=== PATIENT | male | born 1975 | race Caucasian/White ===

== ENCOUNTER → 2017-10-10 16:10 | Outpatient (CLI) | payer MEDICAID ==
[2017-10-14 06:14] LABS: GROWTH HORMONE <0.1 ng/mL (0.0-10.0); IGF BINDING PROTEIN - 3 3984 ug/L (2571-5982); IGF-I (SOMATOMEDIN-C) 236 ng/mL (83-233)
== END | disposition home or self-care (01) ==
LOC: D.LAB 16:10
PROVIDERS: Family Medicine
DX: D35.2 Benign neoplasm of pituitary gland (principal)

== ENCOUNTER 2018-10-09 15:02 | Emergency (ER) | payer MEDICAID ==
[~2018-10-09] VITALS: Ht 182.9 cm; Wt 90.9 kg
[2018-10-09 15:05] VITALS: Ht 182.9 cm; Wt 90.9 kg
[2018-10-09] MEDS ORDERED: COZAAR100 MG PO (15:08)
[2018-10-09] MEDS ORDERED: COREG6.25 MG PO (15:09)
[2018-10-09] MEDS ORDERED: BUTALB-APAP-CA1 EACH PO (15:10)
[2018-10-09] MEDS ORDERED: PARLODEL5 MG PO (15:10)
[2018-10-09 15:36] LABS: APPEARANCE CLEAR (CLEAR); BILIRUBIN NEGATIVE (NEGATIVE); COLOR STRAW (YELLOW); GLUCOSE NEGATIVE (NEGATIVE); KETONE NEGATIVE (NEGATIVE); NITRITE NEGATIVE (NEGATIVE); PROTEIN TRACE mg/dL (NEGATIVE); SPECIFIC GRAVITY 1.005 (1.005-1.020); UROBILINOGEN NORMAL (NORMAL)
[2018-10-09 15:45] LABS: UDS - AMPHET NEGATIVE QUAL (NEGATIVE); UDS - BARB POSITIVE QUAL (NEGATIVE); UDS - BENZO NEGATIVE QUAL (NEGATIVE); UDS - COCAINE NEGATIVE QUAL (NEGATIVE); UDS - OPIATE NEGATIVE QUAL (NEGATIVE); UDS - PCP NEGATIVE QUAL (NEGATIVE); UDS - THC NEGATIVE QUAL (NEGATIVE)
[2018-10-09 16:03] LABS: BASOPHILS 0.3 % (0-2); EOSINOPHILS 0.4 % (0-7); HEMATOCRIT 50.6 % (42.0-54.0); HEMOGLOBIN 17.9 g/dL (13.5-17.5); IMMATURE GRANULOCYTES 0.4 % (0-5); LYMPHOCYTES 33.7 % (15-50); MCH 31.7 pg (26.0-34.0); MCHC 35.4 g/dL (31.0-37.0); MCV 89.7 fL (80.0-100.0); MEAN PLATELET VOLUME 9.9 fL (7.4-10.4); MONOCYTES 9.4 % (2-11); NEUTROPHILS 55.8 % (40-80); PLATELET COUNT 235 10x3/uL (130-400); RBC 5.64 10x6/uL (4.20-6.10); RDW 12.9 % (11.5-14.5); WBC 7.4 10x3/uL (4.8-10.8)
[2018-10-09 16:09] LABS: ALBUMIN 4.2 g/dL (3.4-5.0); BILIRUBIN - TOTAL 0.39 mg/dL (0.2-1.3); CALCIUM 9.1 mg/dL (8.5-10.1); CARBON DIOXIDE 26.7 mmol/L (21.0-32.0); CREATININE - SERUM 1.3 mg/dL (0.6-1.3); POTASSIUM - SERUM 3.7 mmol/L (3.5-5.1); PROTEIN - SERUM 8.1 g/dL (6.4-8.2)
[2018-10-09 16:12] LABS: MAGNESIUM - SERUM 2.2 mg/dL (1.8-2.4)
--- NOTE | 2018-10-09 19:53 | NUR ---
DR. PRIETO NOTIFIED AND REVIEWED PT'S BEHAVIOR AND ASSESSMENT RESULTS. PT IS A LOW RISK PER DR. PRIETO. DR. PRIETO STATED TO GIVE RESOURCES TO PT AT TIME OF DISCHARGE. NO FURTHER ORDERS AT THIS TIME. RESOURCES REVIEWED WITH PT AND HE VERBALIZED UNDERSTANDING. ALSO DISCUSSED LOCAL AA MEETING LOCATIONS.
[2018-10-09 20:20] VITALS: BP 130/82
== END 2018-10-09 20:20 | disposition home or self-care (01) ==
LOC: D.ER 15:02
PROVIDERS: Family Medicine
DX: S09.93XA Unspecified injury of face, initial encounter (principal); W18.30XA Fall on same level, unspecified, initial encounter; Y93.89 Activity, other specified; Y92.89 Other specified places as the place of occurrence of the external cause; F10.10 Alcohol abuse, uncomplicated